=== PATIENT | male | born 1995 | race Caucasian/White ===

== ENCOUNTER 2019-11-23 13:43 | Emergency (ER) | payer OTHER, SELFPAY ==
[2019-11-23] VITALS (12 sets, daily range): BP systolic 122–150; BP diastolic 70–100; PULSE 66–94; RESP 15–24; TEMP 36.5; O2SAT 99–100
--- NOTE | 2019-11-23 13:51 | DI.RAD.S_ITS ---
PROCEDURE: XR SHOULDER RT MIN 2V INDICATIONS: rt shoulder deformity s/p fall TECHNIQUE: 3 views of the shoulder were acquired. COMPARISON: None. FINDINGS: Bones: Anterior dislocation of the humeral head with respect to the glenoid is evident. No definite Hill-Sachs deformity or bony Bankart is appreciated. No suspicious osseous lesions are evident. Soft tissues: No suspicious soft tissue calcifications. IMPRESSION: Anterior left shoulder dislocation. Dictated by: Pop Dominguez M.D. on 11/23/2019 at 13:14 Approved by: Pop Dominguez M.D. on 11/23/2019 at 13:15
[2019-11-23] MEDS: MORPHINE 4 MG/ML INJ IV (14:30)
[2019-11-23] MEDS: ONDANSETRON 4 MG/2 ML INJ IV (14:30)
[2019-11-23] MEDS: SODIUM CHLORIDE 0.9% 1,000 ML 150 ML IV (15:23)
[2019-11-23] MEDS: PROPOFOL 200 MG/20 ML VIAL 150 MG IV (15:30)
[2019-11-23] MEDS: KETAMINE 500 MG/5 ML INJ 45 MG IV (15:30)
--- NOTE | 2019-11-23 15:34 | DI.RAD.S_ITS ---
PROCEDURE: XR SHOULDER RT 1V INDICATIONS: post reduction film TECHNIQUE: Single views of the shoulder were acquired. COMPARISON: [facility], CR, XR SHOULDER RT MIN 2V, 11/23/2019, 13:50. FINDINGS: Bones: Small Hill-Sachs fracture deformity noted. There appears to be anatomic alignment, however recommend axillary or scapular Y-view Soft tissues: No suspicious soft tissue calcifications. IMPRESSION: Small Hill-Sachs fracture deformity noted. On this single image, there appears to be anatomic alignment however consider further evaluation with scapular Y or axillary view for confirmation Dictated by: Bryon Cespedes M.D. on 11/23/2019 at 16:01 Approved by: Bryon Cespedes M.D. on 11/23/2019 at 16:02
--- NOTE | 2019-11-23 15:42 | ED_ITS ---
HPI - Extremity Injury (Upper) General Chief Complaint: Extremity Injury, Upper Stated Complaint: dislocated shoulder, from hospital for special care Time Seen by Provider: 11/23/19 14:23 Source: patient Mode of arrival: Ambulatory History of Present Illness HPI narrative: The patient is a 24-year-old male who states that [place] he slipped and tried to catch himself with his right arm when he injured his shoulder and dislocated his shoulder. He has never before injured or dislocated the shoulder. He complains of severe pain and discomfort. He states that the pain and discomfort is 8 to 10/10 in intensity. He denies any numbness tingling loss of sensation. He has had no chest pain shortness of breath difficulty in breathing cough palpitations racing of his heart. He denies nausea vomiting any change in bowels or incontinence of stool or urine. He denies any head injury back injury neck injury. He does not smoke cigarettes but periodically smokes marijuana and drinks alcohol. He states that he weighs 135 lb and is 6 ft 1 in tall. Because of the pain he has had mild nausea but no vomiting no diarrhea no urinary symptoms. Related Data Previous Rx's Medication Instructions Recorded ibuprofen 600 mg PO QID PRN #20 tab 11/23/19 Allergies Allergy/AdvReac Type Severity Reaction Status Date / Time No Known Drug Allergies Allergy Verified 11/23/19 13:51 Review of Systems Review of Systems Narrative: The patient states that he has history and all review of systems were negative except for those mentioned in the history of present illness. Patient History Social History Smoking Status: Current some day smoker Smoking Status: Current some day smoker tobacco type: smokeless tobacco alcohol intake frequency: 0-2 drinks per day Exam Narrative Exam Narrative: PHYSICAL EXAM: CONSTITUTIONAL: Awake, Alert, Oriented, Coherent, Cooperative in NAD. Does not appear toxic or ill. HEAD: AT/NC EENT: PERRL, FROM of eyes, no discharge, no nystagmus No epistaxis or nasal drainage Oral mucosa is moist and pink, posterior pharynx is without erythema or exudate. NECK: Supple, no obvious JVD, Trachea is midline without stridor, no palpable LN or masses. SPINE: No gross deformity, no palpable tenderness of the cervical, thoracic, lumbar or sacral spine. No CVA tenderness. THORAX: No deformity, retractions, chest wall tenderness, subcutaneous air or crepitice. LUNGS: Clear with symmetrical breath sounds without respiratory distress HEART: Normal heart tones, regular rhythm and rate without murmur. ABDOMEN: Soft, non-tender, normal bowel sounds without guarding, rebound, rigidity or palpable mass or organomegaly. EXTREMITIES: The patient has a dislocated right shoulder with the head of the humerus being anterior and the fossa is empty. Right elbow flexed. Radial pulses are 2+ and symmetrical. Sensation is within normal limits. He is right arm is in a make shift sling. SKIN: No rash, bruising, petechiae or purpura. The patient has some minor abrasions over his left hand. NEURO: Awake, alert, oriented, conversive, cranial nerves II-XII are symmetrical and normal, moves all 4 extremities and is ambulatory Initial Vital Signs Initial Vital Signs: Vital Signs Temperature 97.7 F 11/23/19 13:47 Pulse Rate 74 11/23/19 13:47 Respiratory Rate 22 11/23/19 13:47 Blood Pressure 126/89 11/23/19 13:47 Pulse Oximetry 100 11/23/19 13:47 Course Course Course Narrative: The patient's advanced triage x-ray revealed that he had an anterior dislocation of his right shoulder. The patient was administered 4 mg of morphine sulfate for his pain and discomfort and 4 mg of Zofran IV. The patient last ate yesterday evening. This morning had orange juice and nothing else. Procedure: He was administered conscious sedation, 45 mg of ketamine followed by 50 mg of propofol. With traction on his right shoulder arm extended and external rotation the shoulder relocated. The procedure started at 3:29 p.m. with a time-out. The patient was administered at 3:30 p.m. the medications for conscious sedation. At 3:31 p.m. it was relocated and a post reduction x-ray was ordered on the patient. He was then placed in a shoulder immobilizer. I reviewed the patient's x-ray obtained at the bedside. He will be discharged to be seen in follow-up by Orthopedics. The patient will be referred to Dr. rodriguez to follow-up in orthopedic surgery. Orders Ordered: ED Orders 11/23/19 13:51 XR shoulder RT min 2V Stat 11/23/19 15:34 XR shoulder RT 1V Stat Discontinued Medications Sodium Chloride (Normal Saline 0.9%) 1,000 mls @ 150 mls/hr IV BOLUS ONE Stop: 11/23/19 22:01 Last Infusion: 11/23/19 16:16 Dose: 0 mls/hr Documented by: Admin: 11/23/19 15:23 Dose: 150 mls/hr Documented by: CLAUDETTE Ketamine HCl (Ketalar) 45 mg IV NOW ONE Stop: 11/23/19 14:33 Last Admin: 11/23/19 15:30 Dose: 45 mg Documented by: CLAUDETTE Morphine Sulfate (Morphine) 4 mg IV NOW ONE Stop: 11/23/19 14:15 Last Admin: 11/23/19 14:30 Dose: 4 mg Documented by: DIANE Ondansetron HCl (Zofran) 4 mg IV NOW ONE Stop: 11/23/19 14:14 Last Admin: 11/23/19 14:30 Dose: 4 mg Documented by: DIANE Propofol (Diprivan) 150 mg IV NOW ONE Stop: 11/23/19 14:33 Last Admin: 11/23/19 15:30 Dose: 50 mg Documented by: CLAUDETTE Vital Signs Vital signs: Vital Signs - 8 hr 11/23/19 13:47 11/23/19 15:00 11/23/19 15:10 Temperature 97.7 F Pulse Rate 74 68 71 Pulse Rate [Right Radial] Respiratory Rate 22 20 20 Blood Pressure 126/89 Blood Pressure [Left Arm] 137/89 137/89 Pulse Oximetry 100 100 100 11/23/19 15:25 11/23/19 15:29 11/23/19 15:35 Temperature Pulse Rate 70 94 H Pulse Rate [Right Radial] 73 Respiratory Rate 20 24 Blood Pressure Blood Pressure [Left Arm] 135/91 H 150/100 H Pulse Oximetry 100 100 11/23/19 15:40 11/23/19 15:45 11/23/19 15:50 Temperature Pulse Rate 76 82 75 Pulse Rate [Right Radial] Respiratory Rate 24 15 18 Blood Pressure Blood Pressure [Left Arm] 139/95 H 138/87 137/94 H Pulse Oximetry 100 100 100 11/23/19 15:55 11/23/19 16:00 11/23/19 16:35 Temperature Pulse Rate 76 73 66 Pulse Rate [Right Radial] Respiratory Rate 18 16 18 Blood Pressure Blood Pressure [Left Arm] 140/91 H 137/97 H 122/70 Pulse Oximetry 100 100 99 Discharge Plan Departure Patient Disposition: Home Clinical Impression: Anterior shoulder dislocation Qualifiers: Encounter type: initial encounter Laterality: right Qualified Code(s): S43.014A - Anterior dislocation of right humerus, initial encounter Discharge Date/Time: 11/23/19 16:38 Instructions: DI for Shoulder Dislocation Activity Restrictions/Additional Instructions: Continue to wear the shoulder immobilizer until seen and re-evaluated by Orthopedics. You can take it off to shower and then put it back on. Follow-up with Dr. Plasencia in orthopedic surgery. Prescriptions: New ibuprofen 600 mg tablet 600 mg PO QID PRN (Reason: pain) Qty: 20 RF: 0 Referrals: Gregory Plasencia MD [Physician] - (wear shoulder immobilizer until seen by Dr. Plasencia in orthopedic surgery. Return if any problem)
== END 2019-11-23 16:38 | disposition home or self-care (01) ==
PROVIDERS: Emergency Provider Emergency Medicine
DX: S43.014A Anterior dislocation of right humerus, initial encounter (principal); W19.XXXA Unspecified fall, initial encounter
CPT/HCPCS: 23650; 36415; 73020; 73030; 94770; 96374; 96375; 99152; 99285; J2270; J2405; J2704